=== PATIENT | female | born 1965 | race Caucasian/White ===

== ENCOUNTER → 2021-02-08 | Outpatient (CLI) | payer BC ==
--- NOTE | 2021-02-08 16:28 | XR ---
KUB HISTORY: R 10.31 Frontal KUB and 2 images There is a spinal curvature convex right in the mid lumbar spine level. Lung bases are clear. There i s no evident pneumoperitoneum. There are air-fluid levels without bowel distention. There is an oval calcification present superimposed at the L4 transverse process measuring 2.7 cm x 1.4 cm. Vascular c alcifications are present within the pelvis. Multiple small calcifications are present in the right p araspinal location at the L3-4 level measuring no greater than 3 to 4 mm each, there are at least 4 5 , possible phleboliths with central lucency noted at this level. IMPRESSION: Oval calcification is indeterminate on the left related to the kidney. Consider alternat e imaging.
== END | disposition home or self-care (01) ==
LOC: RADXRMAIN 15:49
PROVIDERS: ATTEND Internal Medicine
DX: N83.8 Other noninflammatory disorders of ovary, fallopian tube and broad ligament (principal)
CPT/HCPCS: 74018

== ENCOUNTER → 2021-08-23 | Outpatient (CLI) | payer BC ==
--- NOTE | 2021-08-23 16:10 | US ---
EXAMINATION TYPE: US gallbladder DATE OF EXAM: 08/23/2021 COMPARISON: NONE CLINICAL HISTORY: R10.11 RIGHT UPPER QUADRANT PAIN. Nausea and RUQ pain x years. EXAM MEASUREMENTS: Liver Length: 13.4 cm Gallbladder Wall: 0.3 cm CBD: 0.2 cm Right Kidney: 8.1 x 5.0 x 4.0 cm Pancreas: wnl Liver: mildly heterogeneous at aristides hepatis Gallbladder: mobile, shadowing gallstones seen within gallbladder; wall is at upper limits of normal thickness Evidence for sonographic Ewing's sign: tender here CBD: wnl Right Kidney: No hydronephrosis or masses seen Fairly large mobile shadowing gallstone is identified. No pericholecystic fluid or abnormal gallbladd er wall thickening. Sonographic Ewing sign is positive. IMPRESSION: Gallstone without convincing secondary ultrasound evidence for acute cholecystitis but th ere is positive sonographic Ewing's sign and patient has right upper quadrant pain so it cannot be e ntirely excluded. Consider HIDA scan follow-up.
== END | disposition home or self-care (01) ==
LOC: RADUSWWP 15:02
PROVIDERS: ATTEND Internal Medicine
DX: K80.80 Other cholelithiasis without obstruction (principal)
CPT/HCPCS: 76705

== ENCOUNTER 2022-02-03 06:06 | Day surgery (SDC) | payer BC ==
--- NOTE | 2022-02-02 15:24 | P.GSHP ---
History of Present Illness H&P Date: 02/02/22 Chief Complaint: Chronic cholecystitis 56-year-old female last seen in the office 11/16. Patient with 15-20 year history of gallstones. Recently with increasing right upper quadrant pain that radiates to the back. Aggravated by certain foods. Ultrasound showed gallstones with a borderline wall thickening and positive Ewing sign. Recent labs show normal liver enzymes. Past Medical History Past Medical History: GERD/Reflux, Pneumonia, Thyroid Disorder Additional Past Medical History / Comment(s): hx of aspiration pneumonia after hysterectomy,reflux contolled with diet and tums if needed. low bp History of Any Multi-Drug Resistant Organisms: None Reported Past Surgical History: Bowel Resection, Hysterectomy Additional Past Surgical History / Comment(s): scar tissue caused gangrenous bowel, slow to wake up after surgeries Past Anesthesia/Blood Transfusion Reactions: Postoperative Nausea & Vomiting (PONV) Additional Past Anesthesia/Blood Transfusion Reaction / Comment(s): states patch has worked well in past for ponv Smoking Status: Former smoker Medications and Allergies Home Medications Medication Instructions Recorded Confirmed Type Levothyroxine Sodium [Synthroid] 50 mcg PO DAILY 02/01/22 02/01/22 History Pravastatin Sodium [Pravachol] 40 mg PO HS 02/01/22 02/01/22 History Sertraline [Zoloft] 150 mg PO DAILY 02/01/22 02/01/22 History Allergies Allergy/AdvReac Type Severity Reaction Status Date / Time No Known Allergies Allergy Verified 02/01/22 15:21 Surgical - Exam Physical exam: General: Well-developed, well-nourished HEENT: Normocephalic, sclerae nonicteric Abdomen: Nontender, nondistended Extremities: No edema Neuro: Alert and oriented Assessment and Plan (1) Chronic cholecystitis Narrative/Plan: 56-year-old female with chronic cholecystitis. We'll proceed with laparoscopic cholecystectomy, possible open. Risks of bleeding, infection, bile leak, bile duct injury, retained common bile duct stone, trocar injury, conversion to an open procedure, hernia, anesthesia related complications were reviewed. The patient understands and wishes to proceed. Status: Acute Code(s): K81.1 - CHRONIC CHOLECYSTITIS SNOMED Code(s): 57239636
[~2022-02-03 06:06] MED LIST: ACETAMINOPHEN TAB 500 MG TAB PO PRN; DEXAMETHASONE SOD PHOSPHATE 4 MG/ML 1 ML VIAL IV ONE; HEPARIN SODIUM,PORCINE/PF 5,000 UNIT/0.5 ML SYRINGE SQ PRN; LACTATED RINGERS 1,000 ML IV SCH; LIDOCAINE 1% (10MG/ML) FOR IV START INTRADERMA PRN; ONDANSETRON 4 MG/2 ML VIAL IVP ONE; SCOPOLAMINE 1 MG/72 HR PATCH TRANSDERM ONE
[2022-02-03] MEDS ORDERED: DEXAMETHASONE SOD PHOSPHATE 4 MG/ML 1 ML VIAL IVP ONE (07:09)
[2022-02-03] MEDS ORDERED: ONDANSETRON 4 MG/2 ML VIAL IVP ONE (07:10)
[2022-02-03] MEDS ORDERED: SCOPOLAMINE 1 MG/72 HR PATCH TRANSDERM ONE (07:10)
[2022-02-03] MEDS ORDERED: MIDAZOLAM 2 MG/2 ML VIAL ONE (07:32)
[2022-02-03] MEDS ORDERED: fentaNYL (PF) 50 MCG/ML 50 ML VIAL ONE (07:32)
[2022-02-03] MEDS ORDERED: ROCURONIUM 10 MG/ML (5 ML VIAL) IV ONE (07:32)
[2022-02-03] MEDS ORDERED: PROPOFOL 10 MG/ML 20 ML VIAL IV ONE (07:32)
[2022-02-03] MEDS ORDERED: KETOROLAC 30 MG/ML 1 ML VIAL ONE (07:32)
[2022-02-03] MEDS ORDERED: GLYCOPYRROLATE 0.2 MG/ML 2 ML VIAL ONE (07:32)
[2022-02-03] MEDS ORDERED: NEOSTIGMINE 1 MG/ML 10 ML VIAL ONE (07:32)
[2022-02-03] MEDS ORDERED: SUCCINYLCHOLINE CHLORIDE 200 MG/10 ML VIAL IV ONE (07:32)
[2022-02-03] MEDS ORDERED: BUPIVACAINE (PF) 0.5% 30 ML VIAL SQ ONE (08:03)
[2022-02-03] MEDS ORDERED: LACTATED RINGERS 1,000 ML IV ONE (08:23)
[2022-02-03] MEDS: HYDROmorphone 0.5 MG/0.5 ML SYRINGE IVP PRN ×3 (08:39→08:57)
--- NOTE | 2022-02-03 08:42 | P.OP ---
Date of Procedure: 02/03/22 Procedure(s) Performed: PREOPERATIVE DIAGNOSIS: Chronic cholecystitis POSTOPERATIVE DIAGNOSIS: Same PROCEDURE: Laparoscopic cholecystectomy SURGEON: April EBL: Minimal see anesthesia record ANESTHESIA: Gen. COMPLICATIONS: None OPERATIVE PROCEDURE: The patient was brought and placed on the operating room table in the supine position. The patient was placed under general anesthesia at that time. The abdomen was prepped and draped in the usual sterile fashion. A small curvilinear supraumbilical incision was made. The fascia was grasped with the Jackson forceps. The fascia was retracted anteriorly. The Veress needle was advanced into the peritoneal cavity. The saline drop test was normal. Insufflation took place up to 15 mmHg. A 5 mm optical trocar was advanced and the peritoneal cavity. 2 additional 5 mm trochars were placed in the right upper quadrant under direct visualization. A 12 mm trocar was advanced into the epigastric incision site. The gallbladder was retracted superiorly and laterally. The peritoneum overlying the infundibulum was bluntly dissected. The patient's cystic duct was visualized. The junction between the cystic duct common and hepatic duct was identified. The critical view of safety was achieved after blunt dissection. The cystic duct was then divided after placement of 3 12 mm clips on the patient's side and one on the specimen side. The cystic artery was identified and clipped as well. A small vessel was seen along the gallbladder fossa and clipped as well. The gallbladder was then removed from the liver bed using electrocautery. The gallbladder was then removed from the epigastric trocar site with an Endo Catch bag. The gallbladder fossa was irrigated with saline. There was no evidence of any bleeding or biliary drainage seen. The fascia at the 12 millimeter site was closed using a Desmond-Myla 0 Vicryl stitch. The trochars were then removed. The skin at all 4 sites was closed using a 4-0 Monocryl stitch. Skin glue was utilized on the incision sites. At the end of this procedure the sponge and needle counts were correct. DISPOSITION: Stable to the recovery room
[2022-02-03] MEDS ORDERED: ACETAMINOPHEN TAB 325 MG TAB PO SCH (08:45)
[2022-02-03 08:46] VITALS: TEMP 97
[2022-02-03 10:06] VITALS: BP 116/56; PULSE 77; RESP 20
[2022-02-03] MEDS ORDERED: IBUPROFEN 600 MG TAB PO SCH (11:45)
== END 2022-02-03 10:26 ==
LOC: OR 06:06
PROVIDERS: ATTEND Surgery
DX: K80.10 Calculus of gallbladder with chronic cholecystitis without obstruction (principal); K21.9 Gastro-esophageal reflux disease without esophagitis; F17.200 Nicotine dependence, unspecified, uncomplicated; E78.5 Hyperlipidemia, unspecified; Z79.890 Hormone replacement therapy
CPT/HCPCS: 47562; 88304; J2250; J0330; J1100; J3010; J2710; J0690; J2405; J1885; J2704; J1170; J1644

== ENCOUNTER → 2022-12-06 | Outpatient (CLI) | payer BC ==
--- NOTE | 2022-12-07 08:57 | MR ---
EXAMINATION TYPE: MR brain wo con DATE OF EXAM: 12/06/2022 3:28 PM COMPARISON: None. CLINICAL INDICATION:Female, 57 years old with history of I67.9 CEREBROVASCULAR DISEASE, UNSPECIFIED; PHH, TECHNIQUE: Multi planar, multi sequence imaging was performed through the brain. No gadolinium was gi simon. FINDINGS: The payne-white junctions, ventricular system, and cisterns appear unremarkable. Few scattered high T 2/FLAIR signal foci within the subcortical white matter. Largest measures 4 mm in the right frontopar ietal region (series 5 and 1, image 20). Midline structures show no abnormality. Diffusion-weighted i maging shows no evidence of restricted diffusion. There is symmetric lesions within the posterior hor ns of both lateral ventricles which demonstrate restricted diffusion and FLAIR hyperintensity. Grossl y measures up to 2 cm. These are consistent with choroid plexus xanthogranulomas. The susceptibility weighted images do not reveal any evidence for micro-hemorrhage. Likely bilateral basal ganglia calci fications. The bone marrow signal is within normal limits. The globes are unremarkable. Moderate mucosal thicken ing of the right maxillary sinus. Mild mucosal thickening in the ethmoid sinuses. Minimal mucosal thi ckening of left rectus sinus. The mastoid air cells are clear. IMPRESSION: 1. No evidence of acute/subacute infarct. 2. Nonspecific white matter changes, likely secondary to small vessel ischemic disease versus less li vangie demyelination. 3. Incidental bilateral choroid plexus xanthogranulomas. 4. Right maxillary sinus disease.
== END | disposition home or self-care (01) ==
LOC: RADMRIMAIN 14:56
PROVIDERS: ATTEND Psychiatry & Neurology Neurology
DX: I67.9 Cerebrovascular disease, unspecified (principal); J32.0 Chronic maxillary sinusitis; R90.82 White matter disease, unspecified
CPT/HCPCS: 70551